=== PATIENT | female | born 2000 | race American Indian/Alaskan Native ===

== ENCOUNTER 2019-04-26 20:42 | Emergency (ER) | payer SELFPAY ==
[2019-04-26 21:10] VITALS: BP 138/91
--- NOTE | 2019-04-26 21:15 | Event Note ---
ED Screening Note Date of service: 04/26/19 Time: 21:08 ED Screening Note: 18 y old female presents stating she has been off her HIV medications x 9 months Genvoia and stirlib and truvada LMP: This initial assessment/diagnostic orders/clinical plan/treatment(s) is/are subject to change based on patients health status, clinical progression and re- assessment by fellow clinical providers in the ED. Further treatment and workup at subsequent clinical providers discretion. Patient/guardian urged not to elope from the ED as their condition may be serious if not clinically assessed and managed. Initial orders include:
--- NOTE | 2019-04-26 21:32 | Emergency Department Report ---
Chief Complaint: Medical Clearance Stated Complaint: MEDICATION REFILL Time Seen by Provider: 04/26/19 21:07 - HPI History of Present Illness: pt is a 18 y o female with a hx of HIV presenting to the ED wanting her medication refill. Patient states for the past 9 months she has not been able to take her medication. Patient states she takes medication for HIV. She denies any fevers/chills/nausea or vomiting or any other problems. she denied any symptoms - ROS Review of Systems: as noted in HPI - Exam Vital Signs: Vital Signs 04/26/19 21:06 Temperature 98.2 F Pulse Rate 86 Respiratory 18 Rate Blood Pressure 138/91 O2 Sat by Pulse 98 Oximetry Physical Exam: General: Alert and oriented 3. Patient is in no acute distress. MSE screening note: Focused history and physical exam performed. Due to findings the following was ordered: ED Medical Decision Making - Medical Decision Making 18-year-old female presents with medication refill. Patient given medication. Patient is in no acute distress I discussed with her to follow-up with her infectious disease as well as primary care physician. ED Disposition for MSE Clinical Impression: Medication refill Disposition: DC-01 TO HOME OR SELFCARE Is pt being admited?: No Does the pt Need Aspirin: No Condition: Stable Instructions: Human Immunodeficiency Virus Transmission (ED), Human Immunodeficiency Virus Infection (ED) Additional Instructions: Follow up with the health department for STD screening Prescriptions: Emtricitabine/Tenofovir (Tdf) [Truvada 100 mg-150 mg Tablet] 1 each PO DAILY #30 tablet Referrals: ZAK VASQUES MD [Primary Care Provider] - 3-5 Days [facility] [Outside] - 3[facility]5 Days [facility] [Outside] - 3[facility]5 Days [facility] [Outside] - 3-5 Days [facility] [Outside] - 3-5 Days Forms: Work/School Release Form(ED) Time of Disposition: 21:37
== END 2019-04-26 21:53 | disposition home or self-care (01) ==
LOC: ED 20:42
DX: Z76.0 Encounter for issue of repeat prescription (principal); Z88.8 Allergy status to other drugs, medicaments and biological substances
CPT/HCPCS: 99282

== ENCOUNTER 2020-06-22 02:27 | Emergency (ER) | payer SELFPAY ==
[2020-06-22] MEDS ORDERED: WATER FOR INJ Sterile (PF) 10 ML ONE (03:23)
[2020-06-22] MEDS ORDERED: LORazepam 2 MG/ML VIAL IM ONE (03:23)
[2020-06-22] MEDS ORDERED: diphenhydrAMINE 50 MG/ML VIAL IM ONE (03:23)
[2020-06-22] MEDS ORDERED: ZIPRASIDONE MESYLATE 20 MG VIAL IM ONE ×2 (03:23)
[2020-06-22] MEDS ORDERED: LORazepam 2 MG/ML VIAL ONE (03:24)
--- NOTE | 2020-06-22 03:24 | Emergency Department Report ---
ED Psych HPI - General Chief Complaint: Psych Stated Complaint: PSYCH EVAL Time Seen by Provider: 06/22/20 03:19 Source: patient Mode of arrival: Ambulatory Limitations: Altered Mental Status - History of Present Illness Initial Comments: Patient is a 19-year-old female that presents emergency room with complaints of racing thoughts, needing sleep. Patient states she is been up for 2 weeks doing meth. Patient states she is not able to sleep because she is so amped up. Patient denies suicidal homicidal ideations. Patient denies hallucinations. P atient states she is having internal turmoil. Patient is agitated during initial exam. Patient is somewhat uncooperative. Patient is also emotional and crying. Patient denies recent travel. Patient denies recent international travel. Patient denies exposure to the novel coronavirus. Patient denies sick contacts. Patient denies fever and chills. Patient denies cough. Patient denies diarr hea. Patient denies coming in contact with anybody with symptoms of the novel coronavirus. MD Complaint: feels depressed, altered mental status -: Sudden Associated Psychiatric Symptoms: racing thoughts History of same: Yes Quality: constant Improves With: none Worsens With: drug use Context: recent drug abuse, significant life stressor Associated Symptoms: denies: confusion, headache, shortness of breath, nausea, vomiting, syncope, insomnia - Related Data Previous Rx's Medication Instructions Recorded Last Taken Type Emtricitabine/Tenofovir (Tdf) 1 each PO DAILY #30 tablet 04/26/19 Unknown Rx [Truvada 100 mg-150 mg Tablet] Sulfamethoxazole/Trimethoprim 1 each PO BID 10 Days #20 tablet 06/22/20 Unknown Rx [Bactrim DS TAB] Allergies Allergy/AdvReac Type Severity Reaction Status Date / Time aripiprazole [From Abilify] Allergy Unknown Verified 04/26/19 21:03 divalproex sodium Allergy Unknown Verified 04/26/19 21:03 [From Depakote] risperidone [From Risperdal] Allergy Unknown Verified 04/26/19 21:03 ED Review of Systems ROS: Stated complaint: PSYCH EVAL Other details as noted in HPI Constitutional: denies: chills, fever Eyes: denies: eye pain, eye discharge, vision change ENT: denies: ear pain, throat pain Respiratory: denies: cough, shortness of breath, wheezing Cardiovascular: denies: chest pain, palpitations Endocrine: no symptoms reported Gastrointestinal: denies: abdominal pain, nausea, diarrhea Genitourinary: denies: urgency, dysuria, discharge Musculoskeletal: denies: back pain, joint swelling, arthralgia Skin: denies: rash, lesions Neurological: denies: headache, weakness, paresthesias Psychiatric: depression. denies: anxiety, auditory hallucinations, visual hallucinations, homicidal thoughts, suicidal thoughts Hematological/Lymphatic: denies: easy bleeding, easy bruising ED Past Medical Hx - Past Medical History Previous Medical History?: Yes Hx Psychiatric Treatment: Yes (PTSD) Hx HIV: Yes - Surgical History Past Surgical History?: Yes Additional Surgical History: abscess sx - Family History Family history: no significant - Social History Smoking Status: Current Every Day Smoker Substance Use Type: Methamphetamines - Medications Home Medications: Home Medications Medication Instructions Recorded Confirmed Last Taken Type Emtricitabine/Tenofovir (Tdf) 1 each PO DAILY #30 tablet 04/26/19 Unknown Rx [Truvada 100 mg-150 mg Tablet] Sulfamethoxazole/Trimethoprim 1 each PO BID 10 Days #20 tablet 06/22/20 Unknown Rx [Bactrim DS TAB] ED Physical Exam - General Limitations: No Limitations General appearance: alert, in no apparent distress - Head Head exam: Present: atraumatic, normocephalic - Eye Eye exam: Present: normal appearance - ENT ENT exam: Present: mucous membranes moist - Neck Neck exam: Present: normal inspection - Respiratory Respiratory exam: Present: normal lung sounds bilaterally. Absent: respiratory distress - Cardiovascular Cardiovascular Exam: Present: regular rate, normal rhythm. Absent: systolic murmur, diastolic murmur, rubs, gallop - GI/Abdominal GI/Abdominal exam: Present: soft, normal bowel sounds - Extremities Exam Extremities exam: Present: normal inspection - Back Exam Back exam: Present: normal inspection - Neurological Exam Neurological exam: Present: alert, oriented X3 - Psychiatric Psychiatric exam: Present: agitated, anxious, flat affect - Expanded Psychiatric Exam Expanded Focused psych exam: Present: pressured speech, internal stimuli, restlessness - Skin Skin exam: Present: warm, dry, intact, normal color. Absent: rash ED Course Vital Signs 06/22/20 06/22/20 03:06 07:52 Temperature 98.3 F 97.8 F Pulse Rate 91 H 73 Respiratory 16 20 Rate Blood Pressure 102/59 Blood Pressure 110/63 [Left] O2 Sat by Pulse 97 100 Oximetry - Reevaluation(s) Reevaluation #1: Patient placed on an ER hold. Patient's initial evaluation done. Patient is agitated and noncooperative. Patient will be given Geodon, Ativan and Benadryl. 06/22/20 03:23 Reevaluation #2: Patient will remain in the ER as an ER hold. Patient is medically cleared. Patient's final disposition will come from our psychiatry team. 06/22/20 05:15 ED Medical Decision Making - Lab Data Result diagrams: 06/22/20 03:13 06/22/20 03:13 - Medical Decision Making Patient is a 19-year-old female that presents emergency room with altered mental status, acute psychosis and drug abuse induced insomnia. Patient was agitated upon initial evaluation. Patient given Geodon, Ativan and Benadryl. Patient had labs done. Patient's labs are essentially unremarkable except for UTI. Patient given a prescription for Bactrim to be taken as an outpatient. Patient is medically cleared. Patient's final disposition will come from our psychiatry mental health team. - Differential Diagnosis Acute psychosis, polysubstance abuse, drug-induced psychosis, Critical care attestation.: If time is entered above; I have spent that time in minutes in the direct care of this critically ill patient, excluding procedure time. ED Disposition Clinical Impression: Acute psychosis, Polysubstance abuse UTI (urinary tract infection) Qualifiers: Urinary tract infection type: acute cystitis Hematuria presence: with hematuria Qualified Code(s): N30.01 - Acute cystitis with hematuria Disposition: TO HOME OR SELFCARE Is pt being admited?: No Does the pt Need Aspirin: No Condition: Stable Instructions: Urinary Tract Infection in Women (ED) Additional Instructions: Outpatient COMMUNITY Behavioral Health Resources: [place] [facility] ([facility]) [address] [place] [address] / [phone] Thursday thru Thursday - 8am - 5pm [facility] Address: [address] [place] [address] Thursday thru Thursday- 7am-2pm [facility] Address: [address] [place] [address] Thursday thru Thursday: 8:30AM-5PM SUBSTANCE ABUSE PROGRAMS: [facility]: Location: [place], [place] [employer]! Address: [address] [place] [address] [facility]: Address: [address] [place] [address] [facility]: Address: [address] [place] [address] [facility]: Address: [address] [place] [address] CRIS[facility]OURCES [place] Crisis Line: Suicide Prevention Line: Crisis Text Line: Text START to 773570 Emergency: 911 HOMELESS RESOURCES: [facility] NEED HELP? If you are in need of help or know someone who does, please contact us at [email or web address] call , or come to our offices at [address] [place] [address], Thursday-Thursday beginning at 8AM. [facility] Admission at 7am Thu to Thu Address: [address] [place] [address] Client Engagement [phone] Regular program admission occurs Thursday through Thursday at 7:00 amand operates on a first come, first serve basis.Because we cant anticipate program leilani ilability in advance andprogram spots are in high demand, we recommend arriving early. Space fills up fast! Next steps can include: Assignment to a [facility] program bed Connection to and placement in a partner program, or Referral to a partner agency [place]: [facility] Address: [address] [place] [address] How do I join the [facility] housing program? Our housing programs are offered based on availability. If you are looking to participate in our housing program, simply call [phone] to find out if we have available space. Since we do receive many calls, please allow up to 48 hours for one of our housing specialists to return your call. If we do not have vacancies, we suggest callingthe [facility] hotline at 211 for additional housing options. [facility] 4:30pm daily Address: [address] [place] [address], [place] [address] Prescriptions: Sulfamethoxazole/Trimethoprim [Bactrim DS TAB] 1 each PO BID 10 Days #20 tablet Referrals: PRIMARY CARE, [Primary Care Provider] - 3-5 Days Time of Disposition: 05:15
[2020-06-22 03:34] LABS: Basophils % (Auto) 0.6 % (0.0-1.8); Eosinophils # (Auto) 0.1 K/mm3 (0.0-0.4); Eosinophils % (Auto) 1.5 % (0.0-4.3); Hematocrit 40.1 % (30.3-42.9); Hemoglobin 13.5 gm/dl (10.1-14.3); Lymphocytes # (Auto) 2.3 K/mm3 (1.2-5.4); Lymphocytes % (Auto) 37.2 % (13.4-35.0); Mean Corpuscular HGB Conc 34 % (30-34); Mean Corpuscular Volume 91 fl (79-97); Monocytes # (Auto) 0.7 K/mm3 (0.0-0.8); Monocytes % (Auto) 11.1 % (0.0-7.3); Platelet Count 302 K/mm3 (140-440); Red Blood Count 4.38 M/mm3 (3.65-5.03); Red Cell Distribution Width 13.8 % (13.2-15.2)
[2020-06-22 03:50] LABS: BUN/Creatinine Ratio 18; Blood Urea Nitrogen 18 mg/dL (7-17); Calcium 9.2 mg/dL (8.4-10.2); Hemolysis Index 11
[2020-06-22 04:11] LABS: Bilirubin,Urine NEG (Negative); Blood,Urine NEG (Negative); Color,Urine Yellow (Yellow); Mucus,Urine 2+ /HPF; Urobilinogen,Urine < 2.0 mg/dL (<2.0)
[2020-06-22 04:20] LABS: Amphetamine Screen,Urine PRESUMPTIVE POSITIVE; Benzodiazepines Screen,Urine PRESUMPTIVE NEGATIVE; Cannabinoid Screen,Urine PRESUMPTIVE NEGATIVE; Cocaine Screen,Urine PRESUMPTIVE POSITIVE; Methadone Screen,Urine PRESUMPTIVE NEGATIVE; Opiate Screen,Urine PRESUMPTIVE NEGATIVE
[2020-06-22 07:54] VITALS: BP 110/63
== END 2020-06-22 12:38 | disposition home or self-care (01) ==
LOC: ED 02:27
DX: F23 Brief psychotic disorder (principal); F19.10 Other psychoactive substance abuse, uncomplicated; N39.0 Urinary tract infection, site not specified; F17.200 Nicotine dependence, unspecified, uncomplicated; Z79.899 Other long term (current) drug therapy; Z21 Asymptomatic human immunodeficiency virus [HIV] infection status; Z88.8 Allergy status to other drugs, medicaments and biological substances
CPT/HCPCS: 36415; 80048; 80307; 81001; 84703; 85025; 96372; 99284; J1200; J2060; J3486; 80320; G0480